=== PATIENT | male | born 1935 | race Caucasian/White ===

== ENCOUNTER 2023-08-24 21:22 | Emergency (ER) | payer MEDICARE, MEDICAID ==
[~2023-08-24] VITALS: Ht 172.7 cm; Wt 50.0 kg
[2023-08-24 21:26] VITALS: O2SAT 92
[2023-08-24 21:45] VITALS: TEMP 101
[2023-08-24] MEDS ORDERED: ACETAMINOPHEN 650MG SUPP PR STA (21:54)
[2023-08-24] MEDS ORDERED: ASPIRIN 300MG SUPP PR ONE (22:15)
[2023-08-24] MEDS ORDERED: ENOXAPARIN 40MG/0.4ML SYR SUBCUT ONE (22:15)
[2023-08-24 22:17] LABS: HEMATOCRIT. 27.1 % (42.0-52.0); HEMOGLOBIN. 8.3 g/dL (14.0-18.0); MEAN CORPUSCULAR HEMOGLOBIN 29.3 pg (28.0-32.0); MEAN CORPUSCULAR HGB CONC 30.6 g/dL (31.0-37.0); MEAN CORPUSCULAR VOLUME 95.6 fL (80.0-94.0); MEAN PLATELET VOLUME 10.8 fl (7.4-10.4); PLATELET 186 x1000/uL (130-400); RED BLOOD CELL COUNT 2.84 mill/uL (4.7-6.1); RED CELL DISTRIBUTION WIDTH 20.3 % (11.6-14.6)
[2023-08-24 22:25] LABS: INR 1.5; PROTHROMBIN TIME 16.1 sec (9.6-11.0)
[2023-08-24 22:27] LABS: CHLORIDE 97 mEq/L (98-107); POTASSIUM 4.8 mEq/L (3.5-5.1); SODIUM 125 mEq/L (136-145)
[2023-08-24 22:28] LABS: CALCIUM 6.9 mg/dL (8.7-10.4); CARBON DIOXIDE 11 mEq/L (21-32)
[2023-08-24 22:33] LABS: CREATININE 3.2 mg/dL (0.6-1.3); DIFFERENTIAL COMMENT 1; GLUCOSE 195 mg/dL (70-105); UREA NITROGEN BLOOD 54 mg/dL (9-23); WHITE BLOOD COUNT 69.7 x1000/uL (4.5-11.0)
[2023-08-24] MEDS: CEFTRIAXONE 1GM/50ML 50 ML IV ONE (22:39)
[2023-08-24] MEDS: SODIUM CHLORIDE 0.9% 1000ML BAG (SEPSIS BOLUS) IV ONE (22:39)
[2023-08-24 22:40] VITALS: RESP 22
[2023-08-24 22:41] LABS: ANISOCYTOSIS 1+; PLATELET ESTIMATE NORMAL
[2023-08-24 22:50] LABS: TROPONIN I HIGH SENSITIVITY 111 ng/L (3.0-53)
[2023-08-24 23:48] LABS: BG BASE EXCESS -21.3 mmol/L (-2.0-2.0); BG CARBOXYHEMOGLOBIN 0.3 % (0.5-1.5); BG DEOXYHEMOGLOBIN 2.6 % (0.0-5.0); BG FRACTION INSPIRED OXYGEN 100; BG HCO3 ACT 6.2 mmol/L (22.0-26.0); BG METHEMOGLOBIN 0.3 % (0.0-1.5); BG OXYGEN SATURATION 97.4 % (92.0-98.5); BG OXYHEMOGLOBIN 96.8 % (94.0-97.0); BG PCO2 19.9 mmHg (35.0-45.0); BG PH 7.114 (7.350-7.450); BG PO2 116.4 mmHg (75.0-100.0); BG SAMPLE SITE LEFT BRACHIAL; BG TOTAL HEMOGLOBIN 7.4 g/dL (12.0-18.0); BG VENT MODE MASK - BIPAP
[2023-08-25] MEDS ORDERED: SODIUM BICARBONATE 100 MEQ in SODIUM CHLORIDE 0.45% 900 ML IV SCH (00:15)
[2023-08-25 00:20] LABS: TROPONIN I HIGH SENSITIVITY 122 ng/L (3.0-53)
[2023-08-25 00:28] VITALS: RESP 24
[2023-08-25] MEDS: ENOXAPARIN 60MG/0.6ML SYR SUBCUT NR (00:35)
[2023-08-25] MEDS: SODIUM BICARBONATE 8.4% 1 MEQ/ML 50ML SYR IV ONE (00:35)
[2023-08-25] MEDS ORDERED: SODIUM BICARBONATE IV SCH (00:45)
[2023-08-25] MEDS ORDERED: SODIUM CHLORIDE 0.45% IV SCH (00:45)
[2023-08-25] MEDS: AZITHROMYCIN 500MG/250ML 250 ML IV ONE (00:47)
[2023-08-25 01:08] VITALS: BP 119/55; PULSE 97; RESP 24
== END 2023-08-25 01:32 ==
LOC: ER 21:22
DX: A41.9 Sepsis, unspecified organism (principal); R65.21 Severe sepsis with septic shock; I21.3 ST elevation (STEMI) myocardial infarction of unspecified site; N39.0 Urinary tract infection, site not specified; D64.9 Anemia, unspecified; E87.1 Hypo-osmolality and hyponatremia; E11.65 Type 2 diabetes mellitus with hyperglycemia; I11.0 Hypertensive heart disease with heart failure; F03.90 Unspecified dementia, unspecified severity, without behavioral disturbance, psychotic disturbance, mood disturbance, and anxiety
CPT/HCPCS: 99291; 96365; 80048; 83880; 83605; 85025; 85610; 87040; 84484; 36415; 84145; 71045; 82805; 82375; 94660; 93005; 36600; 96367; 96375; 96372; J0456; J0696; J7030; J1650; J3490